=== PATIENT | male | born 1960 | race Caucasian/White ===

== ENCOUNTER → 2018-11-16 10:50 | Day surgery (SDC) | payer OTHER ==
[~2018-11-16] VITALS: Ht 185.4 cm; Wt 168.2 kg
[~2018-11-16 10:50] MED LIST: LEVO-T88 MCG PO; LISINOPRIL10 MG PO; VITAMIN D2000 UNIT PO; ZYLOPRIM300 MG PO
[2018-11-16 11:09] LABS: HEMATOCRIT 38.9 % (42.0-54.0); HEMOGLOBIN 13.3 g/dL (13.5-17.5); MCH 32.5 pg (26.0-34.0); MCHC 34.2 g/dL (31.0-37.0); MCV 95.1 fL (80.0-100.0); RBC 4.09 10x6/uL (4.20-6.10); RDW 16.1 % (11.5-14.5); WBC 10.5 10x3/uL (4.8-10.8)
[2018-11-16 11:17] LABS: ANION GAP 13.8 mmol/L (8-16); CALCIUM 8.8 mg/dL (8.5-10.1); CREATININE - SERUM 1.1 mg/dL (0.6-1.3); POTASSIUM - SERUM 3.8 mmol/L (3.5-5.1)
[2018-11-16 12:53] VITALS: BP 142/88; Ht 185.4 cm; Wt 168.2 kg
--- NOTE | 2018-11-17 15:07 | OP ---
PATIENT NAME: FALGUNI KEY MEDICAL RECORD: [id number] :60 LOCATION:D.OPS ADMISSION DATE: SURGEON: RUSH IGLESIAS DO DATE OF OPERATION: 11/16/2018 PROCEDURE: Colonoscopy with polypectomy. INDICATIONS FOR PROCEDURE: The patient has a history of anemia and a personal history of colon polyps. His last colonoscopy was 01/01/2013. SCOPE: Olympus video pediatric colonoscope. MEDICATIONS: Propofol 550 mg IV per anesthesia. WITHDRAWAL TIME: 18 minutes. ESTIMATED BLOOD LOSS: Minimal. COMPLICATIONS: None. FINDINGS AND DESCRIPTION OF PROCEDURE: Informed consent was given. The patient was made comfortable with the above medication. After reaching an adequate level of sedation by slow IV push, the patient was placed on his left side. A digital rectal examination was performed and was normal. The endoscope was then advanced under direct visualization through the rectum, through the cecum, confirmed by the presence of the appendiceal orifice and ileocecal valve. The endoscope was slowly withdrawn and mucosa was carefully examined. The prep quality was good. There was one polyp visualized on today's examination. There was a benign appearing sessile polyp, which measured approximately 4-mm in diameter. It was located in the descending colon. It was removed using hot forceps. Retroflexion was performed in the rectum with a normal appearing rectal wall. The endoscope was withdrawn from the patient. The patient tolerated the procedure well and there were no complications. IMPRESSION: 1. A single benign-appearing sessile polyp located in the descending colon. Polyp was removed with hot forceps. 2. Otherwise, normal colonoscopy. PLAN AND RECOMMENDATIONS: 1. Discharge home when recovery parameters are met. 2. Follow up biopsy specimen results. 3. High fiber diet. 4. Continue current medications. 5. Recall colonoscopy in 5 years. TRANSINT:[id number] Voice Confirmation ID: [id number] DOCUMENT ID: [id number] OPERATIVE REPORT [id number] FALGUNI KEY RUSH IGLESIAS DO at 1503 CC: [id number] DICTATION DATE: 11/16/18 1411 MAINTENANCE ENGINEER: 11/16/18 1436 [facility] 11/16/18 [place] [id number]
== END | disposition home or self-care (01) ==
LOC: D.OPS 10:50
PROVIDERS: Anesthesiology; ATTEND Internal Medicine Gastroenterology
DX: D12.4 Benign neoplasm of descending colon (principal); Z86.010 Personal history of colon polyps; D64.9 Anemia, unspecified; Z01.812 Encounter for preprocedural laboratory examination

== ENCOUNTER → 2018-11-25 07:56 | Outpatient (CLI) | payer OTHER ==
[2018-11-16 12:53] VITALS: BMI 48.9
[2018-11-25 08:30] LABS: ALBUMIN 3.3 g/dL (3.4-5.0); BILIRUBIN - DIRECT 0.15 mg/dL (0.00-0.30); BILIRUBIN - INDIRECT 0.57 mg/dL (0.00-1.00); BILIRUBIN - TOTAL 0.72 mg/dL (0.2-1.3); PROTEIN - SERUM 6.9 g/dL (6.4-8.2)
== END | disposition home or self-care (01) ==
LOC: D.US 07:56
PROVIDERS: ATTEND Internal Medicine Gastroenterology
DX: K76.0 Fatty (change of) liver, not elsewhere classified (principal)